=== PATIENT | female | born 1990 | race Asian ===

== ENCOUNTER 2021-01-16 19:20 | Emergency (ER) | payer OTHER ==
[~2021-01-16] VITALS: Ht 165.1 cm; Wt 56.2 kg
[2021-01-16 19:42] VITALS: Ht 165.1 cm; Wt 56.2 kg
[2021-01-16] MEDS ORDERED: IBU400 M2 PO (21:01)
[2021-01-16 21:12] VITALS: BP 103/49
== END 2021-01-16 21:12 | disposition home or self-care (01) ==
LOC: ED 19:20
DX: S16.1XXA Strain of muscle, fascia and tendon at neck level, initial encounter (principal); V49.9XXA Car occupant (driver) (passenger) injured in unspecified traffic accident, initial encounter; Y93.I9 Activity, other involving external motion; Y92.413 State road as the place of occurrence of the external cause; Y99.8 Other external cause status